=== PATIENT | female | born 1950 | race Caucasian/White ===

== ENCOUNTER 2017-12-03 05:20 | Emergency (ER) | payer OTHER, MEDICAID ==
[~2017-12-03] VITALS: Ht 167.6 cm; Wt 86.0 kg
[~2017-12-03 05:20] MED LIST: ARIP2TAB3 PO; ASPI-785 PO; INSLAN SQ; INSU100C3 SQ; LISI-186 PO; METF-416 PO; PAROXETINE 10 MG PO; RABE20TA17 PO; SIMVASTATIN 40MG PO; [UNRECOGNIZED DRUG - CODE] SQ; [UNRECOGNIZED DRUG - SUPPLY]
[2017-12-03] MEDS ORDERED: HYDROCODONE/ACETAMINOPHEN 5/325MG TABLET PO ONE (06:45)
[2017-12-03 07:04] LABS: HEMOGLOBIN. 13.5 g/dL (12.0-16.0); MEAN CORPUSCULAR HEMOGLOBIN 27.8 pg (28.0-32.0); MEAN CORPUSCULAR VOLUME 86.6 fL (81.0-99.0); MEAN PLATELET VOLUME 10.2 fl (7.4-10.4); PLATELET 247 x1000/uL (130-400); RED BLOOD CELL COUNT 4.85 mill/uL (4.2-5.4)
[2017-12-03 07:20] LABS: CHLORIDE 104 mEq/L (98-107)
[2017-12-03 07:45] LABS: PLATELET ESTIMATE NORMAL
[2017-12-03] MEDS ORDERED: ACETAMINOPHEN 325MG TABLET PO ONE (07:45)
[2017-12-03 08:18] VITALS: BP 131/153
== END 2017-12-03 08:26 | disposition home or self-care (01) ==
LOC: ER 05:20
DX: R51 Headache (principal); E11.9 Type 2 diabetes mellitus without complications; Z88.0 Allergy status to penicillin; Z86.73 Personal history of transient ischemic attack (TIA), and cerebral infarction without residual deficits
CPT/HCPCS: 36415; 80048; 99285